=== PATIENT | male | born 1965 | race Caucasian/White ===

== ENCOUNTER 2017-10-18 18:12 | Observation (INO) | payer MEDICAID ==
[~2017-10-18] VITALS: Ht 182.9 cm; Wt 90.0 kg
[~2017-10-18 18:12] MED LIST: MEDR4PAK3 PO; PERC5TAB12 PO
[2017-10-18 18:22] VITALS: BP 153/89; PULSE 107; RESP 18; O2SAT 98
[2017-10-18] MEDS ORDERED: NOVOLOGP2 SQ (18:30)
--- NOTE | 2017-10-18 18:52 | RADRPT ---
EXAM DATE/TIME: 10/18/2017 18:44 [facility] COMPARISON: No previous studies available for comparison. INDICATIONS : Syncope. Patient states facial drooping that started yesterday. MEDICAL HISTORY : Hypertension. SURGICAL HISTORY : None. ENCOUNTER: Initial ACUITY: 2 days PAIN SCORE: 0/10 LOCATION: Bilateral chest FINDINGS: The lungs are clear without infiltrate, nodule, or mass. There is no appreciable pleural effusion fo r technique. Heart and mediastinum are unremarkable. CONCLUSION: No acute cardiopulmonary disease. Estela Blackburn MD on October 18, 2017 at 18:50 Board Certified Radiologist. This report was verified electronically.
[2017-10-18 18:54] VITALS: O2SAT 99
--- NOTE | 2017-10-18 18:54 | RADRPT ---
EXAM DATE/TIME: 10/18/2017 18:36 [facility] COMPARISON: No previous studies available for comparison. INDICATIONS : Right facial droop. RADIATION DOSE: 56.34 CTDIvol (mGy) MEDICAL HISTORY : None SURGICAL HISTORY : None. ENCOUNTER: Initial ACUITY: 1 day PAIN SCALE: 0/10 LOCATION: cranial TECHNIQUE: Multiple contiguous axial images were obtained of the head. Using automated exposure control and adj ustment of the mA and/or kV according to patient size, radiation dose was kept as low as reasonably a chievable to obtain optimal diagnostic quality images. DICOM format image data is available electro nically for review and comparison. FINDINGS: There is no evidence for intracranial hemorrhage, mass effect, mass lesions, edema, or extra-axial fl uid collections. The visualized bony structures appear intact. The ventricles are normal size for t he patient's age. There are no signs of acute infarction for technique. There is chronic opacificati on of the left maxillary sinus the CONCLUSION: Unremarkable study except for chronic sinusitis left maxillary sinus. Estela Blackburn MD on October 18, 2017 at 18:51 Board Certified Radiologist. This report was verified electronically.
[2017-10-18 19:25] LABS: AUTOMATED NEUTROPHIL # 4.7 TH/MM3 (1.8-7.7); BASOPHIL # 0.1 TH/MM3 (0-0.2); BASOPHIL % 0.9 % (0.0-2.0); EOSINOPHIL # 0.2 TH/MM3 (0-0.4); EOSINOPHIL % 2.4 % (0.0-4.0); HEMATOCRIT 47.1 % (39.0-51.0); HEMOGLOBIN 16.2 GM/DL (13.0-17.0); LYMPH % 32.6 % (9.0-44.0); LYMPHOCYTE # 2.6 TH/MM3 (1.0-4.8); MEAN CELL VOLUME 92.4 FL (80.0-100.0); MEAN CORPUSCULAR HEMOGLOBIN 31.8 PG (27.0-34.0); MEAN CORPUSCULAR HGB CONC 34.4 % (32.0-36.0); MEAN PLATELET VOLUME 9.9 FL (7.0-11.0); MONO % 5.6 % (0.0-8.0); MONOCYTE # 0.4 TH/MM3 (0-0.9); NEUT % 58.5 % (16.0-70.0); PLATELET COUNT 181 TH/MM3 (150-450); RED CELL DISTRIBUTION WIDTH 14.3 % (11.6-17.2)
[2017-10-18 19:36] LABS: ALBUMIN 3.9 GM/DL (3.4-5.0); BICARBONATE 23.1 MEQ/L (21.0-32.0); BLOOD UREA NITROGEN 18 MG/DL (7-18); CALCIUM 9.2 MG/DL (8.5-10.1); CHLORIDE 103 MEQ/L (98-107); CREATININE 0.98 MG/DL (0.60-1.30); GLOMERULAR FILTRATION RATE 81 ML/MIN (>89); GLUCOSE,RANDOM 223 MG/DL (74-106); MAGNESIUM 2.1 MG/DL (1.5-2.5); SODIUM (NA) 137 MEQ/L (136-145)
[2017-10-18 19:48] LABS: ALKALINE PHOSPHATASE 98 U/L (45-117); TOTAL BILIRUBIN ADULT 0.3 MG/DL (0.2-1.0); TOTAL PROTEIN 7.7 GM/DL (6.4-8.2); TROPONIN I LESS THAN 0.02 NG/ML (0.02-0.05)
[2017-10-18 20:00] LABS: ALT (GPT) 105 U/L (12-78); AST (GOT) 85 U/L (15-37)
[2017-10-18] MEDS ORDERED: SODIUM CHLORIDE 0.9% FLUSH 10 ML FLUSH IV FLUSH PRN (20:15)
[2017-10-18] MEDS ORDERED: ACYC400T PO (20:18)
[2017-10-18] MEDS ORDERED: PRED50 PO (20:18)
[2017-10-18] MEDS ORDERED: PRED20 PO (20:18)
[2017-10-18] MEDS ORDERED: PRED10 PO (20:18)
[2017-10-18 20:30] VITALS: O2SAT 97
[2017-10-18] MEDS ORDERED: predniSONE 20 MG TAB PO ONE (20:30)
--- NOTE | 2017-10-18 20:30 | PD ---
HPI Chief Complaint: Neuro Symptoms/ Deficits Time Seen by Provider: 18:34 Travel History International Travel<30 days: No Contact w/Intl Traveler<30days: No Traveled to known affect area: No History of Present Illness HPI 51-year-old male that presents to the ED for evaluation of possible neuro symptoms. Patient was brought here by ambulance for violation of this. Per patient yesterday she noticed that he's been having paralysis of the right side of his face. Patient will get better and this morning he continued to have the symptoms. A friend went to see him that he was concerned so they called the ambulance for him. Patient states that he has only paralysis of the rest of the face. Per patient he feels like he cannot close his eye has difficulty eating or drinking fluids secondary to paralysis to the right side of his face. He denies any trouble speaking. Denies any blurry vision or double vision. He does have a history of diabetes, high blood pressure and cholesterol. He also reports that he's been having chest pain intermittently for "months". He has never seen anybody for this and states that he didn't mention this to his doctor but nothing has been done for it. He denies any recent travel or injury. He denies any blood thinners. He was given aspirin by himself before coming to the ED. He denies any chest pain at this time but does feel somewhat stressed because of the paralysis of the face. Per patient he has pain on the right side of the face and is 2 out of 10. Mainly around the area of the ear. Patient's chest pain. Per patient gets to be 6 out of 10 and is sharp. Comes and goes. Nothing alleviates it. PFSH Past Medical History Blood Disorders: No Anxiety: Yes Cancer: No Cardiovascular Problems: No Diminished Hearing: Yes (LEFT) Endocrine: No Genitourinary: No Immune Disorder: No Musculoskeletal: Yes Neurologic: Yes Reproductive: No Respiratory: No ?: Not Past Surgical History Abdominal Surgery: No Cardiac Surgery: No Ear Surgery: No Endocrine Surgery: No Eye Surgery: No Genitourinary Surgery: No Gynecologic Surgery: No Oral Surgery: No Thoracic Surgery: No Social History Alcohol Use: Yes (ocassional) Tobacco Use: No Substance Use: No Allergies-Medications (Allergen,Severity, Reaction): Coded Allergies: penicillin G (Unverified Adverse Reaction, Intermediate, N&V, 10/18/17) Reported Meds & Prescriptions Reported Meds & Active Scripts Active Prednisone 10 Mg Tab 10 Mg PO DAILY 1 Days Prednisone 20 Mg Tab 20 Mg PO DAILY 1 Days Prednisone 20 Mg Tab 30 Mg PO DAILY 1 Days Prednisone 20 Mg Tab 40 Mg PO DAILY 1 Days Take 40 mg (2 tablets) daily for 5 days Prednisone 50 Mg Tab 50 Mg PO DAILY 1 Days Prednisone 20 Mg Tab 60 Mg PO DAILY 4 Days Acyclovir 400 Mg Tab 400 Mg PO 5 TIMES A DAY 10 Days Reported Novolog Inj (Insulin Aspart) 1,000 Unit/10 Ml Vial 0 SQ DIRECTED Sliding Scale as directed. Review of Systems Except as stated in HPI: all other systems reviewed are Neg Physical Exam Narrative GENERAL: SKIN: Warm and dry. HEAD: Atraumatic. Normocephalic. EYES: Pupils equal and round 4 mm reactive and accommodation.. No scleral icterus. No injection or drainage. EOM intact bilaterally. Peripheral vision intact bilaterally. ENT: No nasal bleeding or discharge. Mucous membranes pink and moist. Tongue is midline. No Uvula deviation. NECK: Trachea midline. No JVD. CARDIOVASCULAR: Regular rate and rhythm. No murmurs, S3, S4. No chest pain reproducible with touch. RESPIRATORY: No accessory muscle use. Clear to auscultation. Breath sounds equal bilaterally. GASTROINTESTINAL: Abdomen soft, non-tender, nondistended. Hepatic and splenic margins not palpable. MUSCULOSKELETAL: Extremities without clubbing, cyanosis, or edema. No obvious deformities. Full range of motion of the upper and lower extremities bilaterally. 2+ pulses bilaterally. Sensation and strength intact. NEUROLOGICAL: Awake and alert. No obvious cranial nerve deficits. Motor grossly within normal limits. Five out of 5 muscle strength in the arms and legs. Normal speech. Patient does have obvious paralysis of the right side of the face withsparing of the forehead. Patient cannot smile on the right of the face. Patient has ptosis on the right side of the face. But otherwise patient is neurovascularly intact. PSYCHIATRIC: Appropriate mood and affect; insight and judgment normal. Data Data Last Documented VS Vital Signs Date Time Temp Pulse Resp B/P (MAP) Pulse Ox O2 Delivery O2 Flow Rate FiO2 10/18/17 18:54 99 Room Air 10/18/17 18:22 107 18 153/89 (110) Orders Orders Electrocardiogram (10/18/17 18:34) Complete Blood Count With Diff (12/30/17 18:34) Comprehensive Metabolic Panel (10/18/17 18:34) Ckmb (Isoenzyme) Profile (10/18/17 18:34) Troponin I (10/18/17 18:34) Prothrombin Time / Inr (Pt) (10/18/17 18:34) Act Partial Throm Time (Ptt) (10/18/17 18:34) Magnesium (Mg) (10/18/17 18:34) Thyroid Stimulating Hormone (10/18/17 18:34) Chest, Single Ap (10/18/17 18:34) Ct Brain W/O Iv Contrast(Rout) (10/18/17 18:34) Iv Access Insert/Monitor (10/18/17 18:34) Ecg Monitoring (10/18/17 18:34) Oximetry (10/18/17 18:34) CKMB (10/18/17 18:40) CKMB% (10/18/17 18:40) Admit Order (Ed Use Only) (10/18/17 20:10) Labs Laboratory Tests Test 10/18/17 18:40 10/18/17 19:40 White Blood Count 8.0 TH/MM3 Red Blood Count 5.10 MIL/MM3 Hemoglobin 16.2 GM/DL Hematocrit 47.1 % Mean Corpuscular Volume 92.4 FL Mean Corpuscular Hemoglobin 31.8 PG Mean Corpuscular Hemoglobin Concent 34.4 % Red Cell Distribution Width 14.3 % Platelet Count 181 TH/MM3 Mean Platelet Volume 9.9 FL Neutrophils (%) (Auto) 58.5 % Lymphocytes (%) (Auto) 32.6 % Monocytes (%) (Auto) 5.6 % Eosinophils (%) (Auto) 2.4 % Basophils (%) (Auto) 0.9 % Neutrophils # (Auto) 4.7 TH/MM3 Lymphocytes # (Auto) 2.6 TH/MM3 Monocytes # (Auto) 0.4 TH/MM3 Eosinophils # (Auto) 0.2 TH/MM3 Basophils # (Auto) 0.1 TH/MM3 CBC Comment DIFF FINAL Differential Comment Blood Urea Nitrogen 18 MG/DL Creatinine 0.98 MG/DL Random Glucose 223 MG/DL Total Protein 7.7 GM/DL Albumin 3.9 GM/DL Calcium Level 9.2 MG/DL Magnesium Level 2.1 MG/DL Alkaline Phosphatase 98 U/L Aspartate Amino Transf (AST/SGOT) 85 U/L Alanine Aminotransferase (ALT/SGPT) 105 U/L Total Bilirubin 0.3 MG/DL Sodium Level 137 MEQ/L Potassium Level 5.8 MEQ/L Chloride Level 103 MEQ/L Carbon Dioxide Level 23.1 MEQ/L Anion Gap 11 MEQ/L Estimat Glomerular Filtration Rate 81 ML/MIN Total Creatine Kinase 278 U/L Creatine Kinase MB 2.2 NG/ML Troponin I LESS THAN 0.02 NG/ML Thyroid Stimulating Hormone 3rd Gen 1.150 uIU/ML Prothrombin Time 10.0 SEC Prothromb Time International Ratio 1.0 RATIO Activated Partial Thromboplast Time 24.2 SEC MDM Medical Decision Making Medical Screen Exam Complete: Yes Emergency Medical Condition: Yes Medical Record Reviewed: Yes Interpretation(s) EKG shows sinus tachycardia with no sign of acute ischemia read negative by me and attending. Troponin and CK-MB negative. Last Impressions Head CT 10/18/171833 Signed Impressions: Service Date/Time: Wednesday, October 18, 2017 18:36 - CONCLUSION: Unremarkable study except for chronic sinusitis left maxillary sinus. Estela Blackburn MD Chest X-Ray 10/18/171833 Signed Impressions: Service Date/Time: Wednesday, October 18, 2017 18:44 - CONCLUSION: No acute cardiopulmonary disease. Estela Blackburn MD CBC & BMP Diagram 10/18/17 18:40 Total Protein 7.7, Albumin 3.9, Calcium Level 9.2, Magnesium Level 2.1, Alkaline Phosphatase 98, Aspartate Amino Transf (AST/SGOT) 85 H, Alanine Aminotransferase (ALT/SGPT) 105 H, Total Bilirubin 0.3 Differential Diagnosis Palma's palsy versus CVA versus neurological deficit versus chest pain versus ACS versus normal exam Narrative Course 51-year-old male that presents to the ED for evaluation of possible neurological deficits. She was properly examined and was found to have signs and symptoms which appear to be very consistent with Palma's palsy. Patient has spurring of the forehead. Symptoms happened yesterday. Patient unfortunately does have comorbidities for ACS as well as CVA. He also complains of chest pain that he's had intermittently for some time. He has risk factors for again ACS and CVA. We'll do imaging and labs. EKG and labs were essentially unremarkable. Imaging was essentially unremarkable. Case was discussed with my attending Dr. Peres and Dr. 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 In regards to the chest pain the do recommend admission for chest pain center for ACS rule out. Patient does have multiple risk factors including age, hypertension, diabetes, high cholesterol, or history of smoking as well as family history of ACS. Patient and family agree with admission. Patient was admitted to chest pain center by me. Patient was given first dose of prednisone and acyclovir here in the ED. Of note I wrote the patient scripts for his prednisone Per as well as his acyclovir for when and if he gets discharge as long as everything is negative. Diagnosis Primary Impression: Chest pain in adult Additional Impression: Palma's palsy Admitting Information Admitting Physician Requests: Observation Scripts Prednisone (Prednisone) 10 Mg Tab 10 MG PO DAILY for 1 Day, #1 TAB 0 Refills Prov: Esther Mondragon MD 10/18/17 Prednisone (Prednisone) 20 Mg Tab 20 MG PO DAILY for 1 Day, #1 TAB 0 Refills Prov: Esther Mondragon MD 10/18/17 Prednisone (Prednisone) 20 Mg Tab 30 MG PO DAILY for 1 Day, #2 TAB 0 Refills Prov: Esther Mondragon MD 10/18/17 Prednisone (Prednisone) 20 Mg Tab 40 MG PO DAILY for 1 Day, #2 TAB 0 Refills Take 40 mg (2 tablets) daily for 5 days Prov: Esther Mondragon MD 10/18/17 Prednisone (Prednisone) 50 Mg Tab 50 MG PO DAILY for 1 Day, #1 TAB 0 Refills Prov: Esther Mondragon MD 10/18/17 Prednisone (Prednisone) 20 Mg Tab 60 MG PO DAILY for 4 Days, #12 TAB 0 Refills Prov: Esther Mondragon MD 10/18/17 Acyclovir (Acyclovir) 400 Mg Tab 400 MG PO 5 TIMES A DAY for Mgmt Viral Infection for 10 Days, TAB 0 Refills Prov: Esther Mondragon MD 10/18/17 [facility] Oct 18, 2017 20:30
[2017-10-18 20:56] VITALS: BP 126/84; PULSE 100; RESP 18; O2SAT 97
[2017-10-18 22:04] VITALS: BP 135/83; PULSE 97; RESP 16; TEMP 98; O2SAT 97
[2017-10-18 22:18] VITALS: PULSE 98
--- NOTE | 2017-10-18 22:37 | EKG ---
Date Performed: 10/18/2017 Time Performed: 19:05:09 PTAGE: 51 years EKG: SINUS TACHYCARDIA POSSIBLE RIGHT VENTRICULAR CONDUCTION DELAY NONSPECIFIC T-WAVE ABNORMALIT Y ABNORMAL RHYTHM ECG PREVIOUS TRACING : 11/12/2014 15.32 Compared to the previous tracing, rate has increased DOCTOR: Moncho Kessler Interpretating Date/Time 10/18/2017 22:36:37
[2017-10-18 23:27] LABS: TROPONIN I LESS THAN 0.02 NG/ML (0.02-0.05)
[2017-10-18] MEDS: SODIUM CHLORIDE 0.9% FLUSH 10 ML FLUSH IV FLUSH SCH (23:37)
[2017-10-18] MEDS: ACYCLOVIR 200 MG CAP PO SCH (23:38)
[2017-10-19 00:01] VITALS: PULSE 103
[2017-10-19 00:42] VITALS: BP 130/76; PULSE 102; RESP 18; TEMP 97.9; O2SAT 94
[2017-10-19 01:52] LABS: TROPONIN I LESS THAN 0.02 NG/ML (0.02-0.05)
[2017-10-19 04:02] VITALS: BP 125/73; PULSE 95; RESP 18; TEMP 97.9; O2SAT 95
[2017-10-19] MEDS: ACYCLOVIR 200 MG CAP PO SCH ×3 (05:32→13:33)
[2017-10-19 07:42] VITALS: BP 128/67; PULSE 102; RESP 18; TEMP 98; O2SAT 96
[2017-10-19 08:41] VITALS: PULSE 89
[2017-10-19] MEDS ORDERED: DEXTROSE 50% IN WATER 50 ML VIAL(D50) IV PUSH PRN (08:45)
[2017-10-19] MEDS ORDERED: GLUCAGON 1 MG/ML VIAL OTHER PRN (08:45)
[2017-10-19] MEDS: SODIUM CHLORIDE 0.9% FLUSH 10 ML FLUSH IV FLUSH SCH (09:50)
[2017-10-19] MEDS ORDERED: ARTIFICIAL TEARS OPTH SOLN 15 ML BTL RIGHT EYE SCH (10:00)
[2017-10-19] MEDS ORDERED: GABAPENTIN 400 MG CAP PO ONE (10:00)
[2017-10-19] MEDS ORDERED: ACETAMINOPHEN/HYDROcodone 325 MG/7.5 MG TAB PO PRN (10:00)
[2017-10-19] MEDS ORDERED: REGADENOSON INJ 0.4 MG/5 ML SYR ONE (10:30)
--- NOTE | 2017-10-19 11:39 | RADRPT ---
EXAM DATE/TIME: 10/19/2017 10:03 [facility] COMPARISON: No previous studies available for comparison. INDICATIONS : Chest pain for 1 day. Angina. DOSE: 25.9 mCi Tc99m Myoview at stress. 8.1 mCi Tc99m Myoview at rest. 0.4 mg Lexiscan STRESS SYMPTOMS: None. EJECTION FRACTION: 69% MEDICAL HISTORY : Hypertension. Hypercholesterolemia. Diabetes mellitus type 2. SURGICAL HISTORY : None. ENCOUNTER: Initial ACUITY: 1 day PAIN SCALE: 6/10 LOCATION: Bilateral chest TECHNIQUE: The patient underwent pharmacologic stress with infusion of prescribed dose. Continuous ECG tracing was monitored during stress. Gated SPECT imaging was performed after stress and conventional SPECT i maging was performed at rest. The examination was performed on a SPECT/CT scanner, both attenuation and non-corrected datasets were reviewed. FINDINGS: DISTRIBUTION: The maximum perfused segment at stress is in the anterior wall. PERFUSION STUDY: The pattern of perfusion at stress is within normal limits. GATED STUDY: There is intact wall motion and thickening without hypokinetic or dyskinetic segments. CONCLUSION: No areas of ischemia are seen. RISK CATEGORY: Low (<1% Annual Mortality Rate) Jcarlos García MD on October 19, 2017 at 11:34 Board Certified Radiologist. This report was verified electronically.
[2017-10-19 11:41] VITALS: BP 120/86; PULSE 97; RESP 18; TEMP 97.7; O2SAT 97
[2017-10-19] MEDS ORDERED: INSULIN ASPART SUPPLEMENTAL SCALE SQ SCH (12:00)
--- NOTE | 2017-10-19 12:57 | EKG ---
Date Performed: 10/19/2017 Time Performed: 00:47:54 PTAGE: 51 years EKG: SINUS TACHYCARDIA NONSPECIFIC T-WAVE ABNORMALITY ABNORMAL RHYTHM ECG PREVIOUS TRACING : 10/18/2017 22.34 Compared to prior tracing no significant change DOCTOR: Moncho Kessler Interpretating Date/Time 10/19/2017 12:55:53
[2017-10-19] MEDS ORDERED: GABAPENTIN 400 MG CAP PO SCH (13:00)
--- NOTE | 2017-10-19 13:05 | HHI.DCPOC ---
Discharge Care Plan Diagnosis: (1) Chest pain in adult (2) Palma's palsy Goals to Promote Your Health * To prevent worsening of your condition and complications * To maintain your health at the optimal level Directions to Meet Your Goals Take your medications as prescribed Follow your dietary instruction Follow activity as directed Keep your appointments as scheduled Take your immunizations and boosters as scheduled If your symptoms worsen call your PCP, if no PCP go to Urgent Care Center or Emergency Room Smoking is Dangerous to Your Health. Avoid second hand smoke Call the 24-hour hour crisis hotline for domestic abuse at [facility] Oct 19, 2017 13:05
--- NOTE | 2017-10-19 13:07 | HHI.DCPOC ---
Discharge Care Plan Diagnosis: (1) Elevated liver enzymes (2) Chest pain in adult (3) Palma's palsy Goals to Promote Your Health * To prevent worsening of your condition and complications * To maintain your health at the optimal level Directions to Meet Your Goals Take your medications as prescribed Follow your dietary instruction Follow activity as directed Keep your appointments as scheduled Take your immunizations and boosters as scheduled If your symptoms worsen call your PCP, if no PCP go to Urgent Care Center or Emergency Room Smoking is Dangerous to Your Health. Avoid second hand smoke Call the 24-hour hour crisis hotline for domestic abuse at [facility] Oct 19, 2017 13:07
--- NOTE | 2017-10-19 13:17 | EKG ---
Date Performed: 10/18/2017 Time Performed: 22:34:02 PTAGE: 51 years EKG: SINUS TACHYCARDIA NONSPECIFIC T-WAVE ABNORMALITY ABNORMAL RHYTHM ECG PREVIOUS TRACING : 10/18/2017 19.05 Compared to prior tracing no significant change DOCTOR: Moncho Kessler Interpretating Date/Time 10/19/2017 13:16:47
--- NOTE | 2017-10-19 13:29 | TR ---
Date Performed: 10/19/2017 Time Performed: 10:42:06 DOCTOR: Ady Dougherty DRUG LIST: CLINICAL HISTORY: REASON FOR TEST: REASON FOR ENDING: OBSERVATION: CONCLUSION: Lexiscan stress test was performed under standard four minute protocol. Radionuclide was injected one minute prior to ending the test. No electrocardiographic abormalities were present to suggest ischemia. Nuclear imaging and interpretation are pending. COMMENTS:
--- NOTE | 2017-10-19 13:45 | HHI.HP ---
HPI Service [facility] Dr. Dougherty Primary Care Physician Non-Staff Chief Complaint right facial paralysis and chest pain History of Present Illness Noticed drooping of right corner of his mouth with drooling of liquids when he tried to drink and inability to shut his right eyelid onset ~ 2 days ago. He was evaluated for this in the ER and diagnosed with Right sided Palma's Palsy and started on antiviral and prednisone and Rx written at discharge. He was placed in the [facility] overnight for c/o intermittent chest pain that he mentioned while in the ER. Endorses 2 year history of Stabbing pain to two areas along his left anterior chest that occurs without any precipitating factors and can last for hours but usually days and ends in a "soreness" to the area. Denies any radiation of the pain. No associated symptoms of diaphoresis, dyspnea, N/V. He has mentioned this to his PCP who he endorses was thinking of sending him for a cardiac work up. His PCP is in the [facility] in [place] and he lives in [place]. He denies any cardiac work up in the past. Review of Systems Consitutional: DENIES: Fatigue, Fever, Chills, Weight gain, Weight loss Eyes: DENIES: Amaurosis Fugax, Change in vision HEENT: DENIES: Lightheadedness, Change in hearing Respiratory: DENIES: See HPI, Cough, Snoring, Shortness of breath, Wheezing, Sputum production Cardiovascular: COMPLAINS OF: See HPI, Chest pain Gastrointestinal: DENIES: Nausea, Vomiting, Change in bowel habits, Reflux, Bloody stools, Melena Genitourinary: DENIES: Urinary incontinence, Difficulty voiding Integumentary: DENIES: Rash Neurologic: DENIES: Tingling or numbness, Memory problems, Poor Balance, Stroke symptoms Musculoskeletal: COMPLAINS OF: Back pain (chronic with reported scoliosis) Psychiatric: DENIES: Anxiety, Depression, Sleep disturbances Hematologic: DENIES: Bruising tendencies, Bleeding tendencies Endocrine: DENIES: Weight gain, Weight loss, Thyroid disease peripheral neuropathy. facial paralysis x 2 days, chronic neck pain. diminished hearing left. Past Family Social History Allergies: Coded Allergies: penicillin G (Unverified Adverse Reaction, Intermediate, N&V, 10/18/17) Past Medical History Scoliosis with chronic back pain, peripheral neuropathy, diabetes insulin dependent, HLD, HTN in past but on no Meds currently, Diminished hearing left ear, Anxiety, Denies known CAD. Past Surgical History C5-6 Anterior Cervical Discectomy, resection of HNP and placement of Prestige artificial Disc Reported Medications Reported Meds & Active Scripts Active Prednisone 10 Mg Tab 10 Mg PO DAILY 1 Days Prednisone 20 Mg Tab 20 Mg PO DAILY 1 Days Prednisone 20 Mg Tab 30 Mg PO DAILY 1 Days Prednisone 20 Mg Tab 40 Mg PO DAILY 1 Days Take 40 mg (2 tablets) daily for 5 days Prednisone 50 Mg Tab 50 Mg PO DAILY 1 Days Prednisone 20 Mg Tab 60 Mg PO DAILY 4 Days Acyclovir 400 Mg Tab 400 Mg PO 5 TIMES A DAY 10 Days Reported Novolog Insulin sliding scale usually takes 30 units SubQ AC meals Gabapentin 400 mg PO TID Cholesterol pill daily (unknown name) Levimir Insulin 60 units SubQ Q 12 hrs Active Ordered Medications Current Medications Medications (Trade) Dose Ordered Sig/Kennedy Route Start Time Stop Time Status Last Admin (NS Flush) 2 ml UNSCH PRN IV FLUSH 10/18/17 20:15 (NS Flush) 2 ml BID IV FLUSH 10/18/17 21:00 10/19/17 09:50 (Zovirax) 400 mg 5 TIMES A DAY PO 10/18/17 22:00 10/19/17 09:51 (D50w (Vial) Inj) 50 ml UNSCH PRN IV PUSH 10/19/17 08:45 (Glucagon Inj) 1 mg UNSCH PRN OTHER 10/19/17 08:45 (NovoLOG SUPPLEMENTAL SCALE) 1 ACHS SLIDING SCALE SQ 10/19/17 12:00 10/19/17 12:44 (Tears Naturale Opth Soln) 1 drop Q4H RIGHT EYE 10/19/17 10:00 10/19/17 12:06 ([place] 7.5-325 Mg) 1 tab Q6H PRN PO 10/19/17 10:00 10/19/17 09:50 (Neurontin) 400 mg TID PO 10/19/17 13:00 Family History Paternal Grandparents with heart disease from [place]. Denies any history of CAD in parents. Brother in MVA. Social History Tobacco: Quit Cigarettes 6-12 months ago (3 PPD x 25 years). Currently using pipe tobacco 3x daily ETOH: denies use Illicit drugs: denies use Physical Exam Vital Signs Vital Signs Date Time Temp Pulse Resp B/P (MAP) Pulse Ox O2 Delivery O2 Flow Rate FiO2 10/19/17 11:41 97.7 97 18 120/86 (97) 97 10/19/17 07:42 98.0 102 18 128/67 (87) 96 10/19/17 04:02 97.9 95 18 125/73 (90) 95 10/19/17 00:42 97.9 102 18 130/76 (94) 94 10/19/17 00:01 103 10/18/17 22:18 98 10/18/17 22:04 98.0 97 16 135/83 (100) 97 10/18/17 21:09 10/18/17 20:56 100 18 126/84 (98) 97 Room Air 10/18/17 20:30 97 10/18/17 18:54 99 Room Air 10/18/17 18:22 107 18 153/89 (110) 98 Physical Exam GENERAL: 51 y.o. male lying in bed c/o frontal headache. Pleasant and friendly, able to provide history and answer questions. In NAD. SKIN: Warm and dry. HEAD: Normocephalic. Right sided facial droop, unable to spontaneously close his right eye or lift right eyebrow. EYES: Pupils equal and round. No scleral icterus. No injection or drainage. ENT: No nasal bleeding or discharge. Mucous membranes pink and moist. NECK: Trachea midline. No JVD. No carotid bruits. CARDIOVASCULAR: Regular rate and rhythm. Two heart sounds. No rub or gallop. Faint grade 1/6 systolic murmur. RESPIRATORY: No accessory muscle use. Clear to auscultation. Breath sounds equal bilaterally. GASTROINTESTINAL: Abdomen soft, non-tender, nondistended. Hepatic and splenic margins not palpable. MUSCULOSKELETAL: Extremities without clubbing, cyanosis, or edema. No obvious deformities. NEUROLOGICAL: Awake and alert. Motor grossly within normal limits. Five out of 5 muscle strength in the arms and legs. Normal speech. PSYCHIATRIC: Appropriate mood and affect; insight and judgment normal. EXT: no lower leg edema. 2+ pulses. Laboratory Laboratory Tests Test 10/18/17 18:40 10/18/17 19:40 10/18/17 22:10 10/19/17 01:00 White Blood Count 8.0 Red Blood Count 5.10 Hemoglobin 16.2 Hematocrit 47.1 Mean Corpuscular Volume 92.4 Mean Corpuscular Hemoglobin 31.8 Mean Corpuscular Hemoglobin Concent 34.4 Red Cell Distribution Width 14.3 Platelet Count 181 Mean Platelet Volume 9.9 Neutrophils (%) (Auto) 58.5 Lymphocytes (%) (Auto) 32.6 Monocytes (%) (Auto) 5.6 Eosinophils (%) (Auto) 2.4 Basophils (%) (Auto) 0.9 Neutrophils # (Auto) 4.7 Lymphocytes # (Auto) 2.6 Monocytes # (Auto) 0.4 Eosinophils # (Auto) 0.2 Basophils # (Auto) 0.1 CBC Comment DIFF FINAL Differential Comment Blood Urea Nitrogen 18 Creatinine 0.98 Random Glucose 223 Total Protein 7.7 Albumin 3.9 Calcium Level 9.2 Magnesium Level 2.1 Alkaline Phosphatase 98 Aspartate Amino Transf (AST/SGOT) 85 Alanine Aminotransferase (ALT/SGPT) 105 Total Bilirubin 0.3 Sodium Level 137 Potassium Level 5.8 Chloride Level 103 Carbon Dioxide Level 23.1 Anion Gap 11 Estimat Glomerular Filtration Rate 81 Total Creatine Kinase 278 139 132 Creatine Kinase MB 2.2 1.7 1.6 Troponin I LESS THAN 0.02 LESS THAN 0.02 LESS THAN 0.02 Thyroid Stimulating Hormone 3rd Gen 1.150 Prothrombin Time 10.0 Prothromb Time International Ratio 1.0 Activated Partial Thromboplast Time 24.2 Result Diagram: 10/18/17183910/18/171839 Imaging Last 24 hours Impressions Myocardial Perfusion Scan Nuc Med 10/19/17 0000 Signed Impressions: Service Date/Time: Thursday, October 19, 2017 10:03 - CONCLUSION: No areas of ischemia are seen. RISK CATEGORY: Low (<1%% Annual Mortality Rate) Jcarlos García MD Head CT 10/18/171833 Signed Impressions: Service Date/Time: Wednesday, October 18, 2017 18:36 - CONCLUSION: Unremarkable study except for chronic sinusitis left maxillary sinus. Estela Blackburn MD Chest X-Ray 10/18/171833 Signed Impressions: Service Date/Time: Wednesday, October 18, 2017 18:44 - CONCLUSION: No acute cardiopulmonary disease. Estela Blackburn MD Course EKGs x 3: ST with NS T wave abnormalities Caprini VTE Risk Assessment Caprini VTE Risk Assessment: No/Low Risk (score <= 1) Caprini Risk Assessment Model Point Value = 1 Point Value = 2 Point Value = 3 Point Value = 5 Age 41-60 Minor surgery BMI > 25 kg/m2 Swollen legs Varicose veins or History of unexplained or recurrent spontaneous Oral contraceptives or hormone replacement Sepsis (< 1 month) Serious lung disease, including pneumonia (< 1 month) Abnormal pulmonary function Acute myocardial infarction Congestive heart failure (< 1 month) History of inflammatory bowel disease Medical patient at bed rest Age 61-74 Arthroscopic surgery Major open surgery (> 45 min) Laparoscopic surgery (> 45 min) Malignancy Confined to bed (> 72 hours) Immobilizing plaster cast Central venous access Age >= 75 History of VTE Family history of VTE Factor V Leiden Prothrombin [id number] Lupus anticoagulant Anticardiolipin antibodies Elevated serum homocysteine Heparin-induced thrombocytopenia Other congenital or acquired thrombophilia Stroke (< 1 month) Elective arthroplasty Hip, pelvis, or leg fracture Acute spinal cord injury (< 1 month) Prophylaxis Regimen Total Risk Factor Score Risk Level Prophylaxis Regimen 0-1 Low Early ambulation 2 Moderate Order ONE of the following: *Sequential Compression Device (SCD) *Heparin 5000 units SQ BID 3-4 Higher Order ONE of the following medications: *Heparin 5000 units SQ TID *Enoxaparin/Lovenox 40 mg SQ daily (WT < 150 kg, CrCl > 30 mL/min) *Enoxaparin/Lovenox 30 mg SQ daily (WT < 150 kg, CrCl > 10-29 mL/min) *Enoxaparin/Lovenox 30 mg SQ BID (WT < 150 kg, CrCl > 30 mL/min) AND/OR *Sequential Compression Device (SCD) 5 or more Highest Order ONE of the following medications: *Heparin 5000 units SQ TID (Preferred with Epidurals) *Enoxaparin/Lovenox 40 mg SQ daily (WT < 150 kg, CrCl > 30 mL/min) *Enoxaparin/Lovenox 30 mg SQ daily (WT < 150 kg, CrCl > 10-29 mL/min) *Enoxaparin/Lovenox 30 mg SQ BID (WT < 150 kg, CrCl > 30 mL/min) AND *Sequential Compression Device (SCD) Assessment and Plan Problem List: (1) Chest pain in adult ICD Codes: R07.9 - Chest pain, unspecified Status: Acute Plan: Patient was ruled out with 3 sets of cardiac enzymes and EKGs. Lexiscan was done and demonstrated no ischemia. Suspect pain likely musculoskeletal in nature. discussed results. (2) Palma's palsy ICD Codes: G51.0 - Palma's palsy Status: Acute Plan: Rx Acyclovir, Prednisone and Eye rewetting drops as directed. F/U with PCP in ~ 1 week. (3) Elevated liver enzymes ICD Codes: R74.8 - Abnormal levels of other serum enzymes Plan: F/U with PCP. Copies of labs given. Unsure of past labs for comparison. Denies ETOH. Endorses on "cholesterol pill" but unsure which. Recommend F/U with PCP regarding this. Discussed Condition With Dr. Dougherty reviewed record/history and examined/assessed patient and above plan recommended. Aware of results. Plan is to discharge home with f/u as above. Carol Rice Oct 19, 2017 13:45
== END 2017-10-19 14:11 | disposition home or self-care (01) ==
LOC: NEPE 18:12 → NEDA 20:11 → NEPFCDU 21:20
PROVIDERS: ADMIT Internal Medicine Interventional Cardiology; ATTEND Internal Medicine Interventional Cardiology
DX: R07.9 Chest pain, unspecified (principal); R74.8 Abnormal levels of other serum enzymes; G51.0 Bell's palsy; E78.5 Hyperlipidemia, unspecified; I10 Essential (primary) hypertension; R94.31 Abnormal electrocardiogram [ECG] [EKG]; G81.91 Hemiplegia, unspecified affecting right dominant side; J32.0 Chronic maxillary sinusitis; B34.9 Viral infection, unspecified; E11.42 Type 2 diabetes mellitus with diabetic polyneuropathy; H91.90 Unspecified hearing loss, unspecified ear; M41.9 Scoliosis, unspecified; Z79.4 Long term (current) use of insulin; Z87.891 Personal history of nicotine dependence
CPT/HCPCS: 70450; 71010; 78452; 80053; 82550; 82552; 82948; 83735; 84443; 84484; 85025; 85610; 85730; 93005; 93017; 96372; 99285; A9502; G0378; J1815; J2785; J7512